=== PATIENT | female | born 1970 | race Caucasian/White ===

== ENCOUNTER 2019-02-26 06:50 | Day surgery (SDC) | payer BC ==
[~2019-02-26] VITALS: Ht 167.6 cm; Wt 71.7 kg
[~2019-02-26 06:50] MED LIST: 5-HTP100 MG PO; LEVOTHYROXINE200 MCG PO; MAGNESIUM100 MG PO; NORCO 5-325 TA1 EACH PO; PROGESTERONE200 MG PO; VITAMIN B125000 MCG PO; VIVELLE-DOT1 EAC3 TD
--- NOTE | 2019-02-26 10:49 | NUR ---
02/26/19 Ching9 Brandi Moore 1044-PATIENT ARRIVED TO PACU ON 8L MASK NONAROUSABLE. RR EVEN. SR. 4 LAP SITES TO ABDOMEN CDI STERI STRIPS. IVF INFUSING 1048-PATIENT AROUSING TO VERBAL STIMULI OPENING EYES VERY DROWSY BACK TO SLEEP.
[2019-02-26] MEDS ORDERED: OXYCODON-ACETA1 EAC2 PO (10:59)
[2019-02-26] MEDS ORDERED: OFIRMEV1000 MG/10 IV (11:00)
[2019-02-26] MEDS ORDERED: TYLENOL EXTRA500 MG PO (11:00)
--- NOTE | 2019-02-26 11:26 | NUR ---
PT IS BACK TO DS FROM PACU, SHE IS A LITTLE GROGGY STILL. SHE IS REPORTING PAIN IN THE UPPER ABDOMEN, RATING IT 6/10. , SITA, IS AT THE BEDSIDE. CALL LIGHT WITHIN REACH. NO ADDITIONAL NEEDS AT THIS TIME. WATER ON BEDSIDE TABLE.
--- NOTE | 2019-02-26 12:20 | NUR ---
PT IS REQUESTING TO USE THE RESTROOM. SHE IS UP OOB WITH STANDBY ASSIST. SHE REPORTS BEING ABLE TO EMPTY HER BLADDER, VOID WAS NOT CATCHED. PT IS REQUESTING A PAIN PILL WELL. SPOUSE, SITA, IS STILL AT BEDSIDE. PT IS TOLERATING WATER AND PUDDING. CALL LIGHT WITHIN REACH.
--- NOTE | 2019-02-26 13:34 | NUR ---
PT REPORTS DECREASE IN PAIN. SHE WOULD LIKE TO GO HOME AT THIS TIME.
--- NOTE | 2019-02-26 13:46 | NUR ---
PT GIVEN VERBAL DC INSTRUCTIONS WITH PRESENT. BOTH VERBALIZE UNDERSTANDING. PT TAKEN TO VEHICLE VIA WC.
--- NOTE | 2019-02-28 18:09 | OR ---
[facility] [address] [place], [place] [address] Signed DATE OF OPERATION: 02/26/2019 SURGEON: Jessica Davila MD PREOPERATIVE DIAGNOSIS: Chronic calculous cholecystitis. POSTOPERATIVE DIAGNOSIS: Chronic calculous cholecystitis. PROCEDURES PERFORMED: 1. Laparoscopic cholecystectomy with intraoperative cholangiogram. 2. Surgeon-directed fluoroscopy. ANESTHESIA: General endotracheal; Ayanna Lopez CRNA, and local 20 mL of 0.25% Marcaine with epinephrine. INDICATION: This 49-year-old white woman is a patient of Phoebe Mercado MD of [place], [place]. She has been noted to have recurrent right upper abdominal pain with radiation in the posterior subscapular area. Evaluation has included a gallbladder ultrasound shows multiple gallstones, some of them is about 1 cm in size. There is no sign of intrahepatic ductal dilatation or sign of common duct stone. 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 Her symptoms have progressed to be quite intolerable and she is admitted at this time to undergo cholecystectomy preferred by laparoscopic approach. She understands the risks of bleeding, infection, bile duct injury, need for open procedure, and need for other indicated procedures. She understands that and she wished to proceed. FINDINGS: The gallbladder was chronically inflamed. There were adhesions to the duodenum, to the gallbladder. The liver was entirely normal. The gallbladder once excised showed multiple multifaceted yellow gallstones. Cholangiogram was normal. DESCRIPTION OF PROCEDURE: The patient was brought to the operating room, given a general endotracheal anesthetic. Preoperative antibiotic Ancef was given. Sequential compression device stockings were used and heparin subcutaneously administered. The abdomen was prepared with a Electronically Signed By: JESSICA DAVILA MD 02/28/19 1809 PATIENT NAME: ADAM LOCKWOOD OPERATIVE REPORT DATE OF : 66 REPORT #: [id number] PHYSICIAN: JESSICA DAVILA MD PCP: PHOEBE MERCADO MD REPORT IS CONFIDENTIAL AND NOT TO BE RELEASED WITHOUT AUTHORIZATION [facility] [address] [place], [place] [address] Signed chlorhexidine solution and draped sterilely. An infraumbilical incision was made and using an open Alessandro cannula technique, pneumoperitoneum was achieved to a level of 14 mmHg of carbon dioxide gas. Intraabdominal inspection showed no sign of ascites or carcinomatosis. Liver was entirely normal. The gallbladder was obscured from view. Three additional trocars were placed in usual configuration in the subxiphoid, right midclavicular, and right anterior axillary line. The gallbladder was elevated cephalad and retracted laterally. Filmy adhesions of the duodenal sweep to the gallbladder were taken down with sharp dissection and blunt dissection. This allowed for further elevation of the gallbladder. Lateral retraction of the infundibulum allowed for blunt and electrocautery dissection with triangle of Calot, only identifying level of cystic duct and cystic artery. The cystic artery was doubly clipped and a clip was applied across the gallbladder cystic duct junction. A transverse choledochotomy was made in the cystic duct and retrograde milking of the duct showed clear somewhat thickened bile. There was no sign of stone. Using the Zimmer type cholangiocatheter, intraoperative cholangiography was undertaken showing free flow of contrast in biliary tree with prompt emptying into the duodenum. Additional contrast was given to visualize the common hepatic and more proximal biliary ducts. They were normal as well. The catheter was removed. The cystic duct was triply clipped and divided. The gallbladder dissected free in a retrograde fashion using electrocautery. Gallbladder was extracted through the infraumbilical port site without problem, opened on the back table by the circulating nurse, and found to have multiple yellow multifaceted gallstones. The mucosa was chronically and subacutely inflamed. Irrigation was undertaken in subhepatic space. There was no sign of bile leak, bleeding, or other problems. Excess irrigation fluid was suctioned free. The trocars were removed under direct visualization showing no sign of bleeding. The infraumbilical fascial incision was reapproximated with interrupted #0 Vicryl suture. All wounds were copiously irrigated with saline solution and 20 mL of 0.25% Marcaine anesthetic was injected locally. The skin was then closed with interrupted 3-0 Vicryl. Steri-Strips were applied. The patient was ultimately extubated and transferred to recovery in good condition having suffered no complication. Sponge, needle, and instrument counts reported as correct x3. Jessica Davila MD /MODL /[id number] Electronically Signed By: JESSICA DAVILA MD 02/28/19 1809 PATIENT NAME: ADAM LOCKWOOD OPERATIVE REPORT DATE OF : 66 REPORT #: [id number] PHYSICIAN: JESSICA DAVILA MD PCP: PHOEBE MERCADO MD REPORT IS CONFIDENTIAL AND NOT TO BE RELEASED WITHOUT AUTHORIZATION [address] [address] Signed cc: Phoebe Mercado MD Copies: PHOEBE MERCADO MD ~ Electronically Signed By: JESSICA DAVILA MD 02/28/19 1809 PATIENT NAME: ADAM LOCKWOOD OPERATIVE REPORT DATE OF : 66 REPORT #: [id number] PHYSICIAN: JESSICA DAVILA MD PCP: PHOEBE MERCADO MD REPORT IS CONFIDENTIAL AND NOT TO BE RELEASED WITHOUT AUTHORIZATION
--- NOTE | 2019-03-04 09:40 | PATH ---
[facility] [address] [place], [place] [address] Signed SPECIMEN(S): A GALLBLADDER AND STONES SPECIMEN SOURCE: A. GALLBLADDER AND STONES CLINICAL HISTORY: History chronic cholecystitis. FINAL PATHOLOGIC DIAGNOSIS: Gallbladder and stones, cholecystectomy: - Chronic cholecystitis with intestinal metaplasia and focal mucosal atypia, see Comment. - Cholesterolosis. - Cholelithiasis. COMMENT: Sections show a few areas of mucosal atypia characterized by slightly elongated, pseudostratified nuclei with decreased intracellular mucin; one of these areas is focally present in the cystic duct margin. No nuclear hyperchromasia, nuclear rounding, or clumped chromatin is seen. No malignancy is seen. These changes are favored to be reactive, but low-grade dysplasia cannot be completely ruled out. Clinical correlation required. As part of [facility]' Quality Improvement Program, this case was reviewed by another member of our pathology staff. NAL:smn:C2NR MICROSCOPIC EXAMINATION: Histologic sections of all submitted blocks are examined by light microscopy. These findings, together with the gross examination, support the pathologic diagnosis. GROSS DESCRIPTION: The specimen, labeled "LH, gallbladder and stones," is received in formalin and consists of: Specimen: Previously opened gallbladder. Dimensions: 6.0 x 4.0 x 1.5 cm. Serosa: Violaceous and smooth. Cystic Duct: Unobstructed. Calculi: Multiple valenzuela-yellow and bosselated calculi, aggregating to 4.0 x 4.0 x 1.5 cm. PATIENT NAME: FABIÁNADAM PARRY PATHOLOGY DATE OF : 66 REPORT #: [id number] PHYSICIAN: IFEOMA PATHOLOGY PCP: MIA CLAROS MD REPORT IS CONFIDENTIAL AND NOT TO BE RELEASED WITHOUT AUTHORIZATION [facility] [address] [place] [address] Signed Mucosa: Valenzuela-green and velvety. Wall thickness: 0.2-0.3 cm. Lymph node: No pericystic lymph nodes are grossly identified. Additional: None. Electronics Engineer sections are submitted in cassette (A1). Additional tissue is submitted in cassettes (A2-A3) per Dr. Samuel's request. AR (under the direct supervision of a pathologist) The Gross Description was prepared using a voice recognition system. The report was reviewed for accuracy; however, sound-alike word errors, addition and/or deletions may occur. If there is any question about this report, please contact Client Services. PERFORMING LABORATORY: The technical component was performed by [facility] [address] ([place]mer: Tammi Petty MD; CLIA# [id number]). [facility], [address] [address] ([place]: Arthur Fields MD; CLIA# [id number]). Diagnostician: Marizol Samuel MD Pathologist Electronically Signed 02/28/2019 Copies: ~ PATIENT NAME: ADAM LOCKWOOD PATHOLOGY DATE OF : 66 REPORT #: [id number] PHYSICIAN: IFEOMA KAUR PCP: MIA CLAROS MD REPORT IS CONFIDENTIAL AND NOT TO BE RELEASED WITHOUT AUTHORIZATION
== END 2019-02-26 13:50 | disposition home or self-care (01) ==
LOC: DS 06:50 → OPS 06:50 → DS 10:30 → OPS 13:50
PROVIDERS: Surgery
PROC: BF13YZZ Fluoroscopy of Gallbladder and Bile Ducts using Other Contrast (ICD-10-PCS; 2019-02-26)
PROC: 0FT44ZZ Resection of Gallbladder, Percutaneous Endoscopic Approach (ICD-10-PCS; principal; 2019-02-26 09:45)
DX: K80.10 Calculus of gallbladder with chronic cholecystitis without obstruction (principal); K21.9 Gastro-esophageal reflux disease without esophagitis; E03.9 Hypothyroidism, unspecified; E66.3 Overweight; M79.7 Fibromyalgia; Z68.26 Body mass index [BMI] 26.0-26.9, adult; Z79.899 Other long term (current) drug therapy
CPT/HCPCS: 00790; 74300; J0131; J0690; J1100; J1644; J1885; J2250; J2405; J2704; J3010; J7120; Q9967

== ENCOUNTER 2019-05-10 09:10 | Day surgery (SDC) | payer BC ==
[~2019-05-10] VITALS: Ht 167.6 cm; Wt 74.8 kg
[~2019-05-10 09:10] MED LIST changes: +OFIRMEV1000 MG/10 IV; +OXYCODON-ACETA1 EAC2 PO; +TYLENOL EXTRA500 MG PO
--- NOTE | 2019-05-10 11:13 | NUR ---
05/10/19 1113 Judie Lemon 1105- PT ARRIVES TO PACU ALERT. PT REPORTS SHE HAS "MILD" ABD CRAMPING, PT DENIES NAUSEA. RESP EVEN AND UNLABORED. OXYGEN SAT HIGH 90'S TO 100% ON 3L VIA NC. 1109- PT PLACED ON 3 LEAD TO MONITOR HEART RHYTHM.
--- NOTE | 2019-05-10 12:25 | NUR ---
1210 RETURNED FROM PACU AFTER EMESIS DR DAVILA WANTS PT OBS X1 HR BEFORE LETTING HER GO HOME. PT AWARE AND OK WITH THIS. IN ROOM WITH HER.
--- NOTE | 2019-05-10 13:41 | NUR ---
1310 FEELS MUCH BETTER. NO EMESIS OR NAUSEA. WANTS TO GO HOME.
--- NOTE | 2019-05-13 18:26 | OR ---
[facility] [address] [place], [place] [address] Signed DATE OF OPERATION: 05/10/2019 SURGEON: Jessica Davila MD PREOPERATIVE DIAGNOSES: 1. Dyspeptic symptoms, history of laparoscopic cholecystectomy. 2. Colon screening. POSTOPERATIVE DIAGNOSES: 1. A 1 cm pedunculated polyp of antrum of stomach with smaller polyp of pyloric channel. 2. Hiatal hernia without esophagitis. 3. Diffuse gastritis. CLOtest pending. 4. 1 cm polyp of sigmoid at 20 cm. PROCEDURES: 1. Esophagogastroduodenoscopy with biopsy. 2. Gastric snare polypectomy x2. 3. Total colonoscopy to cecum with hot morcellation excision x1. ANESTHESIA: Intravenous sedation, fentanyl 200 mcg, Versed 10 mg. INDICATION: This 49-year-old white woman is a patient of [facility] in [place], [place], and underwent laparoscopic cholecystectomy with cholangiogram for de for chronic calculous cholecystitis, February 26, 2019. Her biliary symptoms resolved entirely, but she still has some diffuse epigastric pain and dyspeptic symptoms. She is not on any PPI medication. She has no dysphagia. She has no yuly reflux symptoms. Additionally, she is of age for consideration of screening colonoscopy. She is admitted at this time to undergo upper endoscopy on her dyspeptic symptoms as well as colonoscopy for screening. She understands the risks of bleeding, infection, and perforation related to endoscopic evaluations and wished to proceed. FINDINGS: Upper endoscopy confirmed a pedunculated 1 cm polyp of the antrum of the stomach. This was excised with hot snare polypectomy technique. Another polyp of the channel of the pylorus was excised similarly and hemoclip also applied. There was diffuse gastritis. No actual ulceration. CLOtest was equivocal at 30 minutes post procedure. There was a hiatal hernia, but no associated esophagitis. Electronically Signed By: JESSICA DAVILA MD 05/13/19 1826 PATIENT NAME: ADAM LOCKWOOD OPERATIVE REPORT DATE OF : 66 REPORT #: [id number] PHYSICIAN: JESSICA DAVILA MD PCP: PHOEBE MERCADO MD REPORT IS CONFIDENTIAL AND NOT TO BE RELEASED WITHOUT AUTHORIZATION [facility] [address] [place], [place] [address] Signed On colonoscopy, the prep was good. Complete colonoscopy was undertaken to the cecum without question. She had a single 5 mm polyp of the sigmoid at 20 cm, which was excised with hot morcellation technique. DESCRIPTION OF PROCEDURE: The patient was brought to the endoscopy suite and placed in lateral decubitus position, given intravenous sedation to the point of slurred speech and nystagmus with full cardiopulmonary monitoring. A bite block was placed. An Olympus video upper endoscope was passed in the hypopharynx. The vocal cords appeared normal. Scope was advanced to the esophagus throughout its length that appeared normal. Scope was advanced to the stomach, which was insufflated with air. Rugal folds were normal. There was some bile in the stomach. In the antrum, there was a relatively large pedunculated polyp. It was unifocal. Scope was manipulated past this to the pylorus where there was a small polyp of the pyloric channel itself. The scope was then passed into the duodenum. The duodenum was essentially normal. The scope was withdrawn to the pyloric channel visualizing the polyp and it appeared adenomatous. The scope was withdrawn and retroflexed view undertaken of the GE junction showing a hiatal hernia, moderate in size. Remanipulation of the scope was undertaken. Biopsies taken for both RHONA and pathologic testing. The pedunculated polyp was unifocal and therefore at increased risk of neoplastic (adenomatous) potential and therefore, excision was deemed appropriate. Using hot snare polypectomy technique, it was excised fully. A Heard basket was used to retrieve the polyp and the scope and polyp were removed as a unit. The polyp was off-loaded and reintroduction of scope undertaken re-examining a channel polyp. This too was excised with hot snare polypectomy technique. There was no active bleeding, it was more vascular undertaken and therefore, hemoclip was applied. The scope was withdrawn further and biopsies taken of the distal esophagus, though it appeared normal clinically. Removal of the scope showed no other findings. Plans were then made for colonoscopy. Additional sedation was given. Digital rectal examination was performed, which was normal. An Olympus video colonoscope was passed in the rectum and manipulated throughout the colon ultimately intubating the cecum itself. The ileocecal valve and appendiceal orifice were normal. The scope was withdrawn and careful examination throughout showed no sign of abnormality until approximately 20 cm from the anal verge where a somewhat sessile adenomatous-appearing polyp was noted. Narrow band imaging confirmed those impressions. The lesion was excised with morcellation technique with application of cautery. Good hemostasis was noted. There were no other findings of concern. The patient was taken to recovery room in good condition. CONCLUDING DIAGNOSES: 1. Polyps of antrum of stomach, possibly adenomatous, now excised. High suspicion for H pylori. The CLOtest is pending. Diffuse gastritis with hiatal hernia without Electronically Signed By: JESSICA DAVILA MD 05/13/19 1826 PATIENT NAME: ADAM LOCKWOOD OPERATIVE REPORT DATE OF : 66 REPORT #: [id number] PHYSICIAN: JESSICA DAVILA MD PCP: PHOEBE MERCADO MD REPORT IS CONFIDENTIAL AND NOT TO BE RELEASED WITHOUT AUTHORIZATION [facility] [address] [place], [place] [address] Signed esophagitis. 2. Polyp of colon at 20 cm. PLAN: We will initiate Prilosec 20 mg daily and Carafate for a limited amount of time. We will see her back in a month or so and review her pathology reports and her progress with medication. As regard to colon, repeat colonoscopy in 3 years would be recommended. MD NASIM Parker/DARAL /[id number] cc: Phoebe Mercado MD Copies: PHOEBE MERCADO MD ~ Electronically Signed By: JESSICA DAVILA MD 05/13/19 1826 PATIENT NAME: ADAM LOCKWOOD OPERATIVE REPORT DATE OF : 66 REPORT #: [id number] PHYSICIAN: JESSICA DAVILA MD PCP: PHOEBE MERCADO MD REPORT IS CONFIDENTIAL AND NOT TO BE RELEASED WITHOUT AUTHORIZATION
--- NOTE | 2019-05-14 12:45 | PATH ---
[facility] [address] [place], [place] [address] Signed SPECIMEN(S): A STOMACH POLYP SPECIMEN(S): B PYLORIC POLYP SPECIMEN(S): C STOMACH SPECIMEN(S): D LOWER ESOPHAGUS SPECIMEN(S): E COLON POLYP AT 20 CM SPECIMEN SOURCE: A. STOMACH POLYP B. PYLORIC POLYP C. STOMACH D. LOWER ESOPHAGUS E. COLON POLYP AT 20 CM CLINICAL HISTORY: Screening colonoscopy, GERD with esophagitis. Post-op EGD: Gastric pyloric channel polyp and gastritis. Colon polyp x 1. MICROSCOPIC DESCRIPTION: Histologic sections of all submitted blocks are examined by light microscopy. These findings, together with the gross examination, support the pathologic diagnosis. FINAL PATHOLOGIC DIAGNOSIS: A. Stomach, polyp, polypectomy: - Hyperplastic polyp with intestinal metaplasia and reactive changes. - Negative for Helicobacter organisms, see Comment. - Negative for dysplasia or malignancy. B. Stomach, pyloric channel, polyp, polypectomy: - Polypoid foveolar hyperplasia with intestinal metaplasia, ulceration, and granulation tissue formation. - Duodenal type mucosa with chronic inflammation and reactive epithelial changes. - Negative for Helicobacter organisms, see Comment. - Negative for dysplasia or malignancy. C. Stomach, biopsy: - Antral mucosa with chronic, inactive gastritis, reactive gastropathy, and complete intestinal metaplasia. - Negative for Helicobacter organisms, see Comment. - Negative for dysplasia or malignancy. D. Esophagus, lower, biopsy: - Squamous mucosa with changes consistent with mild reflux esophagitis. - Negative for intestinal metaplasia, dysplasia, or malignancy. PATIENT NAME: ADAM LOCKWOOD PATHOLOGY DATE OF : 66 REPORT #: [id number] PHYSICIAN: IFEOMA KAUR PCP: MIA CLAROS MD REPORT IS CONFIDENTIAL AND NOT TO BE RELEASED WITHOUT AUTHORIZATION [facility] [address] [place], [place] [address] Signed E. Colon, polyp at 20 cm, polypectomy: - Fragments of tubular adenoma. - Negative for high-grade dysplasia or malignancy. COMMENT: Immunohistochemical stains (with appropriately staining controls) for H. pylori were performed on specimens A-C and are negative for Helicobacter organisms. NAL: :cml:C2NR GROSS DESCRIPTION: Five specimens are received in five containers, labeled "LH." A. The specimen, labeled "LH, solitary gastric polyp," is received in formalin and consists of one pink-romero soft tissue fragment that measures 0.6 cm in greatest dimension. The specimen is bisected and entirely submitted in cassette (A1). B. The specimen, labeled "LH, pyloric polyp," is received in formalin and consists of one pink-romero soft tissue fragment that measures 0.7 cm in greatest dimension. The specimen is bisected and entirely submitted in cassette (B1). C. The specimen, labeled "LH, stomach biopsy," is received in formalin and consists of two pink-romero soft tissue fragments that measure 0.1-0.2 cm in greatest dimension. The specimen is entirely submitted in cassette (C1). D. The specimen, labeled "LH, distal esophagus biopsy," is received in formalin and consists of two pink-romero soft tissue fragments that measure 0.1-0.2 cm in greatest dimension. The specimen is entirely submitted in cassette (D1). E. The specimen, labeled "LH, colon polyp at 20 cm," is received in formalin and consists of three pink-romero soft tissue fragments that measure 0.1-0.3 cm in greatest dimension. The specimen is entirely submitted in cassette (E1). JS (under the direct supervision of a pathologist) The Gross Description was prepared using a voice recognition system. The report was reviewed for accuracy; however, sound-alike word errors, addition and/or deletions may occur. If there is any question about this report, please contact Client Services. ADDITIONAL NOTES: Immunohistochemical and/or in situ hybridization studies were performed on this case with the appropriate positive controls that react as expected. This test PATIENT NAME: ADAM LOCKWOOD PATHOLOGY DATE OF : 66 REPORT #: [id number] PHYSICIAN: IFEOMA KAUR PCP: MIA CLAROS MD REPORT IS CONFIDENTIAL AND NOT TO BE RELEASED WITHOUT AUTHORIZATION [address] [address] Signed was developed and its performance characteristics determined by [facility]. It has not been cleared or approved by the U.S. Food and Drug Administration. The FDA has determined that such clearance or approval is not necessary. This test is used for clinical purposes. It should not be regarded as investigational or for research. [facility] is certified under the Clinical Laboratory Improvement Amendments of 1988 (CLIA) as qualified to perform high complexity clinical laboratory testing. PERFORMING LABORATORY: The technical component was performed by [facility], [address] [place] [id number] (Bottom Man: Tammi Petty MD; CLIA# [id number]). [facility], [address] [address] (Bottom Man: Arthur Fields MD; CLIA# [id number]). Diagnostician: Marizol Samuel MD Pathologist Electronically Signed 05/14/2019 Copies: ~ PATIENT NAME: ADAM LOCKWOOD PATHOLOGY DATE OF : 66 REPORT #: [id number] PHYSICIAN: IFEOMA PATHOLOGY PCP: MIA CLAROS MD REPORT IS CONFIDENTIAL AND NOT TO BE RELEASED WITHOUT AUTHORIZATION
== END 2019-05-10 13:05 | disposition home or self-care (01) ==
LOC: OPS 09:10 → DS 09:10 → OPS 10:45 → DS 10:45 → OPS 13:05
PROVIDERS: Surgery
PROC: 0DB78ZX Excision of Stomach, Pylorus, Via Natural or Artificial Opening Endoscopic, Diagnostic (ICD-10-PCS; 2019-05-10)
PROC: 0DB38ZX Excision of Lower Esophagus, Via Natural or Artificial Opening Endoscopic, Diagnostic (ICD-10-PCS; 2019-05-10)
PROC: 0DBN8ZZ Excision of Sigmoid Colon, Via Natural or Artificial Opening Endoscopic (ICD-10-PCS; 2019-05-10)
PROC: 0DB78ZZ Excision of Stomach, Pylorus, Via Natural or Artificial Opening Endoscopic (ICD-10-PCS; principal; 2019-05-10 10:45)
PROC: 0DB98ZX Excision of Duodenum, Via Natural or Artificial Opening Endoscopic, Diagnostic (ICD-10-PCS; 2019-05-10 10:45)
DX: Z12.11 Encounter for screening for malignant neoplasm of colon (principal); D12.5 Benign neoplasm of sigmoid colon; K31.7 Polyp of stomach and duodenum; K29.50 Unspecified chronic gastritis without bleeding; K29.80 Duodenitis without bleeding; K44.9 Diaphragmatic hernia without obstruction or gangrene; K21.0 Gastro-esophageal reflux disease with esophagitis; E03.9 Hypothyroidism, unspecified; Z79.899 Other long term (current) drug therapy; Z90.49 Acquired absence of other specified parts of digestive tract; Z90.711 Acquired absence of uterus with remaining cervical stump
CPT/HCPCS: 99153; G0500; J2250; J2405; J3010; J7121